=== PATIENT | female | born 1935 | race Caucasian/White ===

== ENCOUNTER 2018-11-16 14:24 | Inpatient (IN) ==
[2018-11-16 15:57] LABS: Baso # (Auto) 0.3 th/mm3 (0.0-0.2); Baso % (Auto) 3.2 % (0.0-2.0); Chloride 109 meq/L (98-107); Eos # (Auto) 0.1 th/mm3 (0.0-0.4); Eos % (Auto) 0.8 % (0.0-4.0); Hematocrit 33.2 % (35.0-46.0); Hemoglobin 10.8 gm/dL (11.6-15.3); Lymph # (Auto) 1.1 th/mm3 (1.0-4.8); Lymph % (Auto) 12.3 % (9.0-44.0); Mean Corpuscular HGB Conc 32.6 % (32.0-36.0); Mean Corpuscular Hemoglobin 27.6 pg (27.0-34.0); Mean Corpuscular Volume 84.5 fL (80.0-100.0); Mean Platelet Volume 8.3 fL (7.0-11.0); Mono # (Auto) 0.8 th/mm3 (0.0-0.9); Mono % (Auto) 8.8 % (0.0-8.0); Neut # (Auto) 6.4 th/mm3 (1.8-7.7); Neut % (Auto) 74.9 % (16.0-70.0); Platelet Count 168 th/mm3 (150-450); Potassium 3.2 meq/L (3.5-5.1); Red Blood Count 3.93 mil/mm3 (4.00-5.30); Red Cell Distribution Width 14.4 % (11.6-17.2); Sodium 139 meq/L (136-145); White Blood Count 8.7 th/mm3 (4.0-11.0)
[2018-11-16 16:00] LABS: Albumin 2.9 g/dL (3.4-5.0); Anion Gap 7 meq/L (5-15); Calcium 7.7 mg/dL (8.5-10.1); Carbon Dioxide 23.2 meq/L (21.0-32.0); Glucose,Random 130 mg/dL (74-106)
[2018-11-16 16:01] LABS: Blood Urea Nitrogen 24 mg/dL (7-18)
[2018-11-16 16:04] LABS: Alanine Aminotransferase 25 U/L (10-53); Aspartate Aminotransferase 78 U/L (15-37); Glomerular Filtration Rate 48 mL/min (>89)
[2018-11-16 16:05] LABS: Total Protein 6.3 g/dL (6.4-8.2)
[2018-11-16 16:06] LABS: Alkaline Phosphatase 46 U/L (45-117)
[2018-11-16 16:08] LABS: Troponin I 0.03 ng/mL (0.02-0.05)
[2018-11-16 17:06] LABS: Ovalocytes 1+; Platelet Estimate Normal (Normal); Platelet Morphology Normal (Normal)
[2018-11-16 17:42] LABS: Clarity,Urine Cloudy (Clear); Color,Urine Yellow (Yellw/Straw); Glucose,Urine (UA) Negative (Negative); Leukocyte Esterase,Urine Small (Negative); Nitrite,Urine Positive (Negative); Specific Gravity,Urine Greater/Equal 1.030 (1.002-1.035); Urobilinogen,Urine 0.2 mg/dL (Less than 2)
[2018-11-16 17:44] LABS: Bilirubin,Urine Small (Negative)
[2018-11-16 17:45] LABS: RBC,Urine 0-3 /hpf (0-3)
[2018-11-16 17:47] LABS: Bacteria,Urine Many /hpf; Hyaline Casts,Urine 0-3 /lpf (0-3); Mucus,Urine Few /lpf (Occasional); Squamous Epithelial Cell,Urine 0-5 /hpf (0-5); WBC,Urine 21-50 /hpf (0-5)
--- NOTE | 2018-11-16 18:06 | ED ---
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 She was at the doctor's office today for a follow- up appointment and was noticed to be weak and lethargic so he called the ambulance and brought her here to the ER. Patient has baseline the fascia from the previous CVA and will the history is taken from the daughter who says that over the last few days patient has not been eating well, not getting out of bed , weak and lethargic. No fever or chills or night sweats. No chest pain or shortness of breath or any other complaints. Related Data Home Medications Medication Instructions Recorded Confirmed apixaban [Eliquis] 2.5 mg PO BID 11/14/18 11/16/18 aspirin 81 mg PO DAILY 11/14/18 11/16/18 carvedilol 3.125 mg PO DAILY 11/14/18 11/16/18 levetiracetam 500 mg PO BID 11/14/18 11/16/18 loratadine 10 mg PO DAILY 11/14/18 11/16/18 lorazepam 0.5 tab PO BID 11/14/18 11/16/18 losartan 50 mg PO DAILY 11/14/18 11/16/18 melatonin 1 mg PO HS PRN 11/14/18 11/16/18 nitroglycerin 1 patch TRANSDERMAL DAILY 11/14/18 11/16/18 pantoprazole 1 tab PO PRN 11/14/18 11/16/18 polyethylene glycol 3350 [Miralax] 1 scoop PO DAILY 11/14/18 11/16/18 pravastatin 40 mg PO HS 11/14/18 11/16/18 risperidone 1 - 2 tab PO DAILY 11/14/18 11/16/18 sertraline 1.5 tab PO DAILY 11/14/18 11/16/18 acyclovir 800 mg PO 5 TIMES A DAY 11/16/18 11/16/18 lorazepam 0.5 mg PO HS 11/16/18 11/16/18 Previous Rx's Medication Instructions Recorded gabapentin 100 mg PO BID #10 cap 11/14/18 ciprofloxacin HCl 500 mg PO Q12HR #6 tab 11/20/18 Allergies Allergy/AdvReac Type Severity Reaction Status Date / Time Sulfa (Sulfonamide Allergy Mild Hives Verified 11/07/18 11:22 Antibiotics) Review of Systems ROS: all other systems reviewed are negative [facility] Social History Social History Substance History: No History of Abuse Second Hand Smoke Exposure: No Smoking Status: Never smoker How Often Do You Have a Drink Containing Alcohol: Monthly or less Recent Travel in [facility] within the Last 8 Weeks: No Recent Out of Country Travel within the Last 8 Weeks: No Immunization History Tetanus Immunization: Unsure Exam Narrative Exam Narrative: GENERAL: Alert oriented x3 no acute distress. SKIN: Focused skin assessment warm/dry. HEAD: Atraumatic. Normocephalic. EYES: Pupils equal and round. No scleral icterus. No injection or drainage. ENT: No nasal bleeding or discharge. Mucous membranes pink and moist. NECK: Trachea midline. No JVD. CARDIOVASCULAR: Regular rate and rhythm. No murmur appreciated. RESPIRATORY: No accessory muscle use. Clear to auscultation. Breath sounds equal bilaterally. GASTROINTESTINAL: Abdomen soft, non-tender, nondistended. Hepatic and splenic margins not palpable. MUSCULOSKELETAL: No obvious deformities. No clubbing. No cyanosis. No edema. NEUROLOGICAL: Awake and alert. No obvious cranial nerve deficits. Motor grossly within normal limits. Normal speech. PSYCHIATRIC: Appropriate mood and affect; insight and judgment normal. Course Initial Documented Vital Signs Temperature 98.6 F 11/16/18 14:25 Pulse Rate 88 11/16/18 14:25 Respiratory Rate 18 11/16/18 14:25 Blood Pressure 136/60 11/16/18 14:25 Pulse Oximetry 99 11/16/18 14:25 Last Documented Vital Signs Temperature 98.0 F 11/20/18 20:00 Pulse Rate 70 11/20/18 20:00 Respiratory Rate 16 11/20/18 20:00 Blood Pressure 140/74 11/20/18 20:00 Pulse Oximetry 96 11/20/18 20:00 Medical Decision Making [facility] Narrative Medical decision making narrative: 83 female history of CVA hypertension here for altered mental status and generalized weakness. Patient vitals are stable without any hypotension or tachycardia, she received 1 L of IV fluids and became more alert but not back to her baseline. Patient continues to be altered mental status, her urine analysis is positive for UTI and this could explain her symptoms. Patient was started on Rocephin IV. Patient will benefit from admission. I spoke with Dr. Epperson accepted the patient. Medical Screen Exam Complete: Yes Emergency Medical Condition: Yes Lab Data Result diagrams: 11/17/18 05:00 11/17/18 05:00 Lab Results 11/16/18 11/16/18 11/16/18 Range/Units 15:35 15:35 15:35 CBC w Diff Slide review pending WBC 8.7 (4.0-11.0) th/mm3 RBC 3.93 L (4.00-5.30) mil/mm3 Hgb 10.8 L (11.6-15.3) gm/dL Hct 33.2 L (35.0-46.0) % MCV 84.5 (80.0-100.0) fL MCH 27.6 (27.0-34.0) pg MCHC 32.6 (32.0-36.0) % RDW 14.4 (11.6-17.2) % Plt Count 168 (150-450) th/mm3 MPV 8.3 (7.0-11.0) fL Neut % (Auto) 74.9 H (16.0-70.0) % Lymph % (Auto) 12.3 (9.0-44.0) % [place] % (Auto) 8.8 H (0.0-8.0) % Eos % (Auto) 0.8 (0.0-4.0) % Baso % (Auto) 3.2 H (0.0-2.0) % Neut # (Auto) 6.4 (1.8-7.7) th/mm3 Lymph # (Auto) 1.1 (1.0-4.8) th/mm3 [place] # (Auto) 0.8 (0.0-0.9) th/mm3 Eos # (Auto) 0.1 (0.0-0.4) th/mm3 Baso # (Auto) 0.3 H (0.0-0.2) th/mm3 WBC Differential . Diff Scan Auto diff confirmed Differential Comment . Platelet Estimate Normal (Normal) Platelet Morphology Normal (Normal) Ovalocytes 1+ H (None) PT (9.8-11.6) sec INR Ratio APTT (23.4-31.7) sec Sodium 139 (136-145) meq/L Potassium 3.2 L (3.5-5.1) meq/L Chloride 109 H (98-107) meq/L Carbon Dioxide 23.2 (21.0-32.0) meq/L Anion Gap 7 (5-15) meq/L BUN 24 H (7-18) mg/dL Creatinine 1.10 H (0.50-1.00) mg/dL Estimated GFR 48 L (>89) mL/min Random Glucose 130 H (74-106) mg/dL Calcium 7.7 L (8.5-10.1) mg/dL Total Bilirubin 1.0 (0.2-1.0) mg/dL AST 78 H (15-37) U/L ALT 25 (10-53) U/L Alkaline Phosphatase 46 (45-117) U/L Ammonia 23 (11-32) mcmol/L Troponin I 0.03 (0.02-0.05) ng/mL Total Protein 6.3 L D (6.4-8.2) g/dL Albumin 2.9 L (3.4-5.0) g/dL Triglycerides (42-150) mg/dL Cholesterol (120-200) mg/dL LDL Cholesterol, Calc (0-99) mg/dL HDL Cholesterol (40.0-60.0) mg/dL Cholesterol/HDL Ratio Ratio TSH (0.358-3.740) uIU/mL Free T4 (0.76-1.46) ng/dL Urine Color (Yellw/Straw) Urine Clarity (Clear) Urine pH (5.0-8.5) Ur Specific [place] (1.002-1.035) Urine Protein (Neg-Trace) mg/dL Urine Glucose (UA) (Negative) mg/dL Urine Ketones (Negative) mg/dL Urine Occult Blood (Negative) Urine Nitrate (Negative) Urine Bilirubin (Negative) Urine Urobilinogen (Less than 2) mg/dL Ur Leukocyte Esterase (Negative) Urine RBC (0-3) /hpf Urine WBC (0-5) /hpf Urine WBC Clumps (None) Ur Squamous Epith Cells (0-5) /hpf Urine Bacteria (None) /hpf Hyaline Casts (0-3) /lpf Urine Mucus (Occasional) /lpf Micro UA Comment Ur Microscopic Review Urine Culture Comments CSF Volume (1) mL CSF Supernat Color (1) (Clear) CSF Gross Blood (1) (0) CSF Volume (2) mL CSF Supernat Color (2) (Clear) CSF Gross Blood (2) (0) CSF Volume (3) mL CSF Supernat Color (3) (Clear) CSF Gross Blood (3) (0) CSF Volume (4) mL CSF Supernat Color (4) (Clear) CSF Gross Blood (4) (0) CSF WBC (4) (0-10) /mm3 CSF RBC (4) (None) /mm3 CSF Neutrophils % % CSF Lymphocytes % % CSF Monocytes % % CSF Glucose (40-80) mg/dL CSF Total Protein (15.0-45.0) mg/dL CSF EBV DNA (PCR) (Negative) CSF Herpes I DNA (PCR) (Negative) CSF Herpes II DNA (PCR) (Negative) Levetiracetam (12.0 - 46.0) mcg/mL EBV Source 11/16/18 11/16/18 11/16/18 Range/Units 15:35 15:35 17:35 CBC w Diff WBC (4.0-11.0) th/mm3 RBC (4.00-5.30) mil/mm3 Hgb (11.6-15.3) gm/dL Hct (35.0-46.0) % MCV (80.0-100.0) fL MCH (27.0-34.0) pg MCHC (32.0-36.0) % RDW (11.6-17.2) % Plt Count (150-450) th/mm3 MPV (7.0-11.0) fL Neut % (Auto) (16.0-70.0) % Lymph % (Auto) (9.0-44.0) % [place] % (Auto) (0.0-8.0) % Eos % (Auto) (0.0-4.0) % Baso % (Auto) (0.0-2.0) % Neut # (Auto) (1.8-7.7) th/mm3 Lymph # (Auto) (1.0-4.8) th/mm3 [place] # (Auto) (0.0-0.9) th/mm3 Eos # (Auto) (0.0-0.4) th/mm3 Baso # (Auto) (0.0-0.2) th/mm3 WBC Differential Diff Scan Differential Comment Platelet Estimate (Normal) Platelet Morphology (Normal) Ovalocytes (None) PT (9.8-11.6) sec INR Ratio APTT (23.4-31.7) sec Sodium (136-145) meq/L Potassium (3.5-5.1) meq/L Chloride (98-107) meq/L Carbon Dioxide (21.0-32.0) meq/L Anion Gap (5-15) meq/L BUN (7-18) mg/dL Creatinine (0.50-1.00) mg/dL Estimated GFR (>89) mL/min Random Glucose (74-106) mg/dL Calcium (8.5-10.1) mg/dL Total Bilirubin (0.2-1.0) mg/dL AST (15-37) U/L ALT (10-53) U/L Alkaline Phosphatase (45-117) U/L Ammonia (11-32) mcmol/L Troponin I (0.02-0.05) ng/mL Total Protein (6.4-8.2) g/dL Albumin (3.4-5.0) g/dL Triglycerides 90 (42-150) mg/dL Cholesterol 117 L (120-200) mg/dL LDL Cholesterol, Calc 61 (0-99) mg/dL HDL Cholesterol 38.5 L (40.0-60.0) mg/dL Cholesterol/HDL Ratio 3.03 Ratio TSH 2.250 (0.358-3.740) uIU/mL Free T4 (0.76-1.46) ng/dL Urine Color Yellow (Yellw/Straw) Urine Clarity Cloudy H (Clear) Urine pH 6.0 (5.0-8.5) Ur Specific [place] Greater/equal 1.030 (1.002-1.035) Urine Protein 100 H (Neg-Trace) mg/dL Urine Glucose (UA) Negative (Negative) mg/dL Urine Ketones Trace H (Negative) mg/dL Urine Occult Blood Moderate H (Negative) Urine Nitrate Positive H (Negative) Urine Bilirubin Small H (Negative) Urine Urobilinogen 0.2 (Less than 2) mg/dL Ur Leukocyte Esterase Small H (Negative) Urine RBC 0-3 (0-3) /hpf Urine WBC 21-50 H (0-5) /hpf Urine WBC Clumps Few H (None) Ur Squamous Epith Cells 0-5 (0-5) /hpf Urine Bacteria Many H (None) /hpf Hyaline Casts 0-3 (0-3) /lpf Urine Mucus Few H (Occasional) /lpf Micro UA Comment Cath-culture ind Ur Microscopic Review Microscopic reviewed Urine Culture Comments Cath-cult indicated CSF Volume (1) mL CSF Supernat Color (1) (Clear) CSF Gross Blood (1) (0) CSF Volume (2) mL CSF Supernat Color (2) (Clear) CSF Gross Blood (2) (0) CSF Volume (3) mL CSF Supernat Color (3) (Clear) CSF Gross Blood (3) (0) CSF Volume (4) mL CSF Supernat Color (4) (Clear) CSF Gross Blood (4) (0) CSF WBC (4) (0-10) /mm3 CSF RBC (4) (None) /mm3 CSF Neutrophils % % CSF Lymphocytes % % CSF Monocytes % % CSF Glucose (40-80) mg/dL CSF Total Protein (15.0-45.0) mg/dL CSF EBV DNA (PCR) (Negative) CSF Herpes I DNA (PCR) (Negative) CSF Herpes II DNA (PCR) (Negative) Levetiracetam (12.0 - 46.0) mcg/mL EBV Source 11/16/18 11/16/18 11/17/18 Range/Units 19:50 19:50 05:00 CBC w Diff Slide review pending WBC 9.2 (4.0-11.0) th/mm3 RBC 3.88 L (4.00-5.30) mil/mm3 Hgb 10.7 L (11.6-15.3) gm/dL Hct 33.4 L (35.0-46.0) % MCV 86.1 (80.0-100.0) fL MCH 27.6 (27.0-34.0) pg MCHC 32.0 (32.0-36.0) % RDW 14.6 (11.6-17.2) % Plt Count 155 (150-450) th/mm3 MPV 9.1 (7.0-11.0) fL Neut % (Auto) 75.9 H (16.0-70.0) % Lymph % (Auto) 12.0 (9.0-44.0) % [place] % (Auto) 9.4 H (0.0-8.0) % Eos % (Auto) 1.6 (0.0-4.0) % Baso % (Auto) 1.1 (0.0-2.0) % Neut # (Auto) 7.0 (1.8-7.7) th/mm3 Lymph # (Auto) 1.1 (1.0-4.8) th/mm3 [place] # (Auto) 0.9 (0.0-0.9) th/mm3 Eos # (Auto) 0.1 (0.0-0.4) th/mm3 Baso # (Auto) 0.1 (0.0-0.2) th/mm3 WBC Differential . Diff Scan Auto diff confirmed Differential Comment . Platelet Estimate (Normal) Platelet Morphology (Normal) Ovalocytes (None) PT (9.8-11.6) sec INR Ratio APTT (23.4-31.7) sec Sodium (136-145) meq/L Potassium (3.5-5.1) meq/L Chloride (98-107) meq/L Carbon Dioxide (21.0-32.0) meq/L Anion Gap (5-15) meq/L BUN (7-18) mg/dL Creatinine (0.50-1.00) mg/dL Estimated GFR (>89) mL/min Random Glucose (74-106) mg/dL Calcium (8.5-10.1) mg/dL Total Bilirubin (0.2-1.0) mg/dL AST (15-37) U/L ALT (10-53) U/L Alkaline Phosphatase (45-117) U/L Ammonia (11-32) mcmol/L Troponin I (0.02-0.05) ng/mL Total Protein (6.4-8.2) g/dL Albumin (3.4-5.0) g/dL Triglycerides (42-150) mg/dL Cholesterol (120-200) mg/dL LDL Cholesterol, Calc (0-99) mg/dL HDL Cholesterol (40.0-60.0) mg/dL Cholesterol/HDL Ratio Ratio TSH (0.358-3.740) uIU/mL Free T4 1.00 (0.76-1.46) ng/dL Urine Color (Yellw/Straw) Urine Clarity (Clear) Urine pH (5.0-8.5) Ur Specific [place] (1.002-1.035) Urine Protein (Neg-Trace) mg/dL Urine Glucose (UA) (Negative) mg/dL Urine Ketones (Negative) mg/dL Urine Occult Blood (Negative) Urine Nitrate (Negative) Urine Bilirubin (Negative) Urine Urobilinogen (Less than 2) mg/dL Ur Leukocyte Esterase (Negative) Urine RBC (0-3) /hpf Urine WBC (0-5) /hpf Urine WBC Clumps (None) Ur Squamous Epith Cells (0-5) /hpf Urine Bacteria (None) /hpf Hyaline Casts (0-3) /lpf Urine Mucus (Occasional) /lpf Micro UA Comment Ur Microscopic Review Urine Culture Comments CSF Volume (1) mL CSF Supernat Color (1) (Clear) CSF Gross Blood (1) (0) CSF Volume (2) mL CSF Supernat Color (2) (Clear) CSF Gross Blood (2) (0) CSF Volume (3) mL CSF Supernat Color (3) (Clear) CSF Gross Blood (3) (0) CSF Volume (4) mL CSF Supernat Color (4) (Clear) CSF Gross Blood (4) (0) CSF WBC (4) (0-10) /mm3 CSF RBC (4) (None) /mm3 CSF Neutrophils % % CSF Lymphocytes % % CSF Monocytes % % CSF Glucose (40-80) mg/dL CSF Total Protein (15.0-45.0) mg/dL CSF EBV DNA (PCR) (Negative) CSF Herpes I DNA (PCR) (Negative) CSF Herpes II DNA (PCR) (Negative) Levetiracetam 17.1 (12.0 - 46.0) mcg/mL EBV Source 11/17/18 11/17/18 11/18/18 Range/Units 05:00 19:00 08:52 CBC w Diff WBC (4.0-11.0) th/mm3 RBC (4.00-5.30) mil/mm3 Hgb (11.6-15.3) gm/dL Hct (35.0-46.0) % MCV (80.0-100.0) fL MCH (27.0-34.0) pg MCHC (32.0-36.0) % RDW (11.6-17.2) % Plt Count (150-450) th/mm3 MPV (7.0-11.0) fL Neut % (Auto) (16.0-70.0) % Lymph % (Auto) (9.0-44.0) % [place] % (Auto) (0.0-8.0) % Eos % (Auto) (0.0-4.0) % Baso % (Auto) (0.0-2.0) % Neut # (Auto) (1.8-7.7) th/mm3 Lymph # (Auto) (1.0-4.8) th/mm3 [place] # (Auto) (0.0-0.9) th/mm3 Eos # (Auto) (0.0-0.4) th/mm3 Baso # (Auto) (0.0-0.2) th/mm3 WBC Differential Diff Scan Differential Comment Platelet Estimate (Normal) Platelet Morphology (Normal) Ovalocytes (None) PT 10.8 (9.8-11.6) sec INR 1.1 Ratio APTT 29.1 (23.4-31.7) sec Sodium 142 (136-145) meq/L Potassium 3.8 (3.5-5.1) meq/L Chloride 110 H (98-107) meq/L Carbon Dioxide 24.2 (21.0-32.0) meq/L Anion Gap 8 (5-15) meq/L BUN 22 H (7-18) mg/dL Creatinine 0.93 (0.50-1.00) mg/dL Estimated GFR 58 L (>89) mL/min Random Glucose 99 (74-106) mg/dL Calcium 7.9 L (8.5-10.1) mg/dL Total Bilirubin (0.2-1.0) mg/dL AST (15-37) U/L ALT (10-53) U/L Alkaline Phosphatase (45-117) U/L Ammonia (11-32) mcmol/L Troponin I (0.02-0.05) ng/mL Total Protein (6.4-8.2) g/dL Albumin (3.4-5.0) g/dL Triglycerides (42-150) mg/dL Cholesterol (120-200) mg/dL LDL Cholesterol, Calc (0-99) mg/dL HDL Cholesterol (40.0-60.0) mg/dL Cholesterol/HDL Ratio Ratio TSH (0.358-3.740) uIU/mL Free T4 (0.76-1.46) ng/dL Urine Color (Yellw/Straw) Urine Clarity (Clear) Urine pH (5.0-8.5) Ur Specific [place] (1.002-1.035) Urine Protein (Neg-Trace) mg/dL Urine Glucose (UA) (Negative) mg/dL Urine Ketones (Negative) mg/dL Urine Occult Blood (Negative) Urine Nitrate (Negative) Urine Bilirubin (Negative) Urine Urobilinogen (Less than 2) mg/dL Ur Leukocyte Esterase (Negative) Urine RBC (0-3) /hpf Urine WBC (0-5) /hpf Urine WBC Clumps (None) Ur Squamous Epith Cells (0-5) /hpf Urine Bacteria (None) /hpf Hyaline Casts (0-3) /lpf Urine Mucus (Occasional) /lpf Micro UA Comment Ur Microscopic Review Urine Culture Comments CSF Volume (1) 2.5 mL CSF Supernat Color (1) Clear (Clear) CSF Gross Blood (1) 0 (0) CSF Volume (2) 2.5 mL CSF Supernat Color (2) Clear (Clear) CSF Gross Blood (2) 0 (0) CSF Volume (3) 3.0 mL CSF Supernat Color (3) Clear (Clear) CSF Gross Blood (3) 0 (0) CSF Volume (4) 3.5 mL CSF Supernat Color (4) Clear (Clear) CSF Gross Blood (4) 0 (0) CSF WBC (4) 12 H (0-10) /mm3 CSF RBC (4) 1 H (None) /mm3 CSF Neutrophils % 2 % CSF Lymphocytes % 94 % CSF Monocytes % 4 % CSF Glucose (40-80) mg/dL CSF Total Protein (15.0-45.0) mg/dL CSF EBV DNA (PCR) (Negative) CSF Herpes I DNA (PCR) (Negative) CSF Herpes II DNA (PCR) (Negative) Levetiracetam (12.0 - 46.0) mcg/mL EBV Source 11/18/18 11/18/18 Range/Units 08:52 08:52 CBC w Diff WBC (4.0-11.0) th/mm3 RBC (4.00-5.30) mil/mm3 Hgb (11.6-15.3) gm/dL Hct (35.0-46.0) % MCV (80.0-100.0) fL MCH (27.0-34.0) pg MCHC (32.0-36.0) % RDW (11.6-17.2) % Plt Count (150-450) th/mm3 MPV (7.0-11.0) fL Neut % (Auto) (16.0-70.0) % Lymph % (Auto) (9.0-44.0) % [place] % (Auto) (0.0-8.0) % Eos % (Auto) (0.0-4.0) % Baso % (Auto) (0.0-2.0) % Neut # (Auto) (1.8-7.7) th/mm3 Lymph # (Auto) (1.0-4.8) th/mm3 [place] # (Auto) (0.0-0.9) th/mm3 Eos # (Auto) (0.0-0.4) th/mm3 Baso # (Auto) (0.0-0.2) th/mm3 WBC Differential Diff Scan Differential Comment Platelet Estimate (Normal) Platelet Morphology (Normal) Ovalocytes (None) PT (9.8-11.6) sec INR Ratio APTT (23.4-31.7) sec Sodium (136-145) meq/L Potassium (3.5-5.1) meq/L Chloride (98-107) meq/L Carbon Dioxide (21.0-32.0) meq/L Anion Gap (5-15) meq/L BUN (7-18) mg/dL Creatinine (0.50-1.00) mg/dL Estimated GFR (>89) mL/min Random Glucose (74-106) mg/dL Calcium (8.5-10.1) mg/dL Total Bilirubin (0.2-1.0) mg/dL AST (15-37) U/L ALT (10-53) U/L Alkaline Phosphatase (45-117) U/L Ammonia (11-32) mcmol/L Troponin I (0.02-0.05) ng/mL Total Protein (6.4-8.2) g/dL Albumin (3.4-5.0) g/dL Triglycerides (42-150) mg/dL Cholesterol (120-200) mg/dL LDL Cholesterol, Calc (0-99) mg/dL HDL Cholesterol (40.0-60.0) mg/dL Cholesterol/HDL Ratio Ratio TSH (0.358-3.740) uIU/mL Free T4 (0.76-1.46) ng/dL Urine Color (Yellw/Straw) Urine Clarity (Clear) Urine pH (5.0-8.5) Ur Specific [place] (1.002-1.035) Urine Protein (Neg-Trace) mg/dL Urine Glucose (UA) (Negative) mg/dL Urine Ketones (Negative) mg/dL Urine Occult Blood (Negative) Urine Nitrate (Negative) Urine Bilirubin (Negative) Urine Urobilinogen (Less than 2) mg/dL Ur Leukocyte Esterase (Negative) Urine RBC (0-3) /hpf Urine WBC (0-5) /hpf Urine WBC Clumps (None) Ur Squamous Epith Cells (0-5) /hpf Urine Bacteria (None) /hpf Hyaline Casts (0-3) /lpf Urine Mucus (Occasional) /lpf Micro UA Comment Ur Microscopic Review Urine Culture Comments CSF Volume (1) mL CSF Supernat Color (1) (Clear) CSF Gross Blood (1) (0) CSF Volume (2) mL CSF Supernat Color (2) (Clear) CSF Gross Blood (2) (0) CSF Volume (3) mL CSF Supernat Color (3) (Clear) CSF Gross Blood (3) (0) CSF Volume (4) mL CSF Supernat Color (4) (Clear) CSF Gross Blood (4) (0) CSF WBC (4) (0-10) /mm3 CSF RBC (4) (None) /mm3 CSF Neutrophils % % CSF Lymphocytes % % CSF Monocytes % % CSF Glucose 50 (40-80) mg/dL CSF Total Protein 34.0 (15.0-45.0) mg/dL CSF EBV DNA (PCR) Negative (Negative) CSF Herpes I DNA (PCR) Negative (Negative) CSF Herpes II DNA (PCR) Negative (Negative) Levetiracetam (12.0 - 46.0) mcg/mL EBV Source [facility] Imaging Data Radiologist's impression: Head CT 11/16/18 00:00 CONCLUSION: 1. 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 Head MRI 11/17/18 00:00 CONCLUSION: 1. Old infarct left sylvian region, negative for acute process. Lumbar Puncture Fluoroscopy 11/18/18 00:00 CONCLUSION: Uncomplicated fluoroscopically guided lumbar puncture. Discharge Plan Discharge Disposition Patient Disposition: ED Admit(ED Internal Use Only) Discharge Condition Condition: Stable Discharge Order Discharge Orders: Discharge Order (Routine); Ordered 11/20/18 Ordered By: Pilar Rae ED Use Only Admit Order (Routine); Ordered 11/16/18 Ordered By: Kosta Bartlett Discharge Details Anticipated Discharge Date: 11/20/18 Discharge Comment: DC when arrangements are done Physicians Team ED Provider: Kosta Bartlett Primary Care Provider: Glenn Marie Attending Provider: Pilar Rae Other Providers: Colt Kulkarni ED Status: Left Department Discharge Information Discharge Date/Time: 11/16/18 21:01
[2018-11-16] MEDS: Sod Chloride 0.9% Inj 1,000 ML IV.CONT SCH ×2 (18:30→23:49)
--- NOTE | 2018-11-16 18:59 | CT ---
EXAM DATE: 11/16/2018 6:56 PM EST AGE/SEX: 83 years / Female INDICATIONS: Altered mental status. CLINICAL DATA: This is the patient's initial encounter. Patient reports that signs and symptoms have been present for 1 day and indicates a pain score of Nonresponsive. MEDICAL/SURGICAL HISTORY: Stroke. Hypertension. None. RADIATION DOSE: 49.68 CTDI (mGy) [place] [facility] [place]. . TECHNIQUE: CT of the head without contrast. Using automated exposure control and adjustment of the mA and/or kV according to patient size, radiation dose was kept as low as reasonably achievable to ob tain optimal diagnostic quality images. DICOM format image data is available electronically for revi ew and comparison. FINDINGS: Cerebrum: There is an old infarct in the left sylvian region. There is moderate central and cortical atrophy. The right hemisphere is unremarkable Posterior fossa appears normal Orbits and paranasal sinuses are unremarkable. CONCLUSION: 1. 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 Electronically signed by: Jorge A Appiah MD Board Certified Radiologist 11/16/2018 6:58 PM EST
[2018-11-16] MEDS ORDERED: Acetaminophen 325 MG Tablet PO PRN (19:00)
[2018-11-16] MEDS ORDERED: Bisacodyl 10 MG Supp RECTAL PRN (19:00)
--- NOTE | 2018-11-16 21:37 | ECG ---
Date Performed: 11/16/2018 Time Performed: 19:52:03 PTAGE: 83 years EKG: ATRIAL FIBRILLATION SEPTAL MYOCARDIAL INFARCTION ABNORMAL ECG PREVIOUS TRACING : 11/14/2018 06.28 Compared to previous tracing, Sinus rhythm no longer present DOCTOR: Abel Adams Interpretating Date/Time 11/16/2018 21:36:05
[2018-11-16 22:01] LABS: Chol/HDL Ratio 3.03 Ratio; HDL Cholesterol 38.5 mg/dL (40.0-60.0)
[2018-11-16] MEDS: Potassium Chlor 20 mEq Premix 20 MEQ/100 ML PIGGYBACK IV.SIG SCH (23:33)
[2018-11-16] MEDS: levETIRAcetam 500 MG Tablet PO SCH (23:48)
[2018-11-16] MEDS: Acyclovir 800 MG Tablet PO SCH (23:49)
[2018-11-17] MEDS: Potassium Chlor 20 mEq Premix 20 MEQ/100 ML PIGGYBACK IV.SIG SCH (02:09)
[2018-11-17] MEDS: Acyclovir 800 MG Tablet PO SCH (05:14)
[2018-11-17 06:31] LABS: Baso # (Auto) 0.1 th/mm3 (0.0-0.2); Baso % (Auto) 1.1 % (0.0-2.0); Eos # (Auto) 0.1 th/mm3 (0.0-0.4); Eos % (Auto) 1.6 % (0.0-4.0); Hematocrit 33.4 % (35.0-46.0); Hemoglobin 10.7 gm/dL (11.6-15.3); Lymph # (Auto) 1.1 th/mm3 (1.0-4.8); Mean Corpuscular Hemoglobin 27.6 pg (27.0-34.0); Mean Corpuscular Volume 86.1 fL (80.0-100.0); Mean Platelet Volume 9.1 fL (7.0-11.0); Mono # (Auto) 0.9 th/mm3 (0.0-0.9); Mono % (Auto) 9.4 % (0.0-8.0); Neut % (Auto) 75.9 % (16.0-70.0); Platelet Count 155 th/mm3 (150-450); Red Blood Count 3.88 mil/mm3 (4.00-5.30); Red Cell Distribution Width 14.6 % (11.6-17.2); White Blood Count 9.2 th/mm3 (4.0-11.0)
[2018-11-17 06:40] LABS: Potassium 3.8 meq/L (3.5-5.1)
[2018-11-17 06:44] LABS: Calcium 7.9 mg/dL (8.5-10.1)
[2018-11-17 06:45] LABS: Carbon Dioxide 24.2 meq/L (21.0-32.0)
--- NOTE | 2018-11-17 08:14 | P.HPIM ---
History of Present Illness Service: Hospitalist Primary Care Physician: Glenn Marie DO Chief Complaint: Lethargic, AMS History of Present Illness: Ms. Montanez is an 83-year-old female with a history of atrial fibrillation, hypertension, previous stroke who presented to the emergency department on 11/16/2018 due to worsening lethargy, altered mental status. At her baseline, patient is able to walk around but cannot verbalize. She comprehends very well. At the time of this interview, patient is not able to participate in any meaningful way. Patient's is at bedside. About a week ago, his skin lesion on the right flank area was noted. She was subsequently evaluated in the emergency department and was given desciclovir. She went to her primary care physician's office where she was found to have an lethargy. Primary care physician called ambulance and subsequently patient was brought to the hospital. ED workup indicates possible UTI. CT head showed old stroke but no acute findings. Patient was given 1 dose of ceftriaxone in the emergency department. 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 Family history: No family history of Alzheimer's or Parkinson's. Review of Systems Review of Systems: all other systems reviewed are negative [facility] Social History Social History Substance History: No History of Abuse Second Hand Smoke Exposure: No Smoking Status: Never smoker How Often Do You Have a Drink Containing Alcohol: Monthly or less Recent Travel in [facility] within the Last 8 Weeks: No Recent Out of Country Travel within the Last 8 Weeks: No Immunization History Tetanus Immunization: <5 Years Hx Influenza Vaccine This Season: No Medications and Allergies Allergies Allergy/AdvReac Type Severity Reaction Status Date / Time Sulfa (Sulfonamide Allergy Mild Hives Verified 11/07/18 11:22 Antibiotics) Home Medications Medication Instructions Recorded Confirmed Type apixaban [Eliquis] 2.5 mg PO BID 11/14/18 11/16/18 History aspirin 81 mg PO DAILY 11/14/18 11/16/18 History carvedilol 3.125 mg PO DAILY 11/14/18 11/16/18 History levetiracetam 500 mg PO BID 11/14/18 11/16/18 History loratadine 10 mg PO DAILY 11/14/18 11/16/18 History lorazepam 0.5 tab PO BID 11/14/18 11/16/18 History losartan 50 mg PO DAILY 11/14/18 11/16/18 History melatonin 1 mg PO HS PRN 11/14/18 11/16/18 History nitroglycerin 1 patch TRANSDERMAL DAILY 11/14/18 11/16/18 History pantoprazole 1 tab PO PRN 11/14/18 11/16/18 History polyethylene glycol 3350 [Miralax] 1 scoop PO DAILY 11/14/18 11/16/18 History pravastatin 40 mg PO HS 11/14/18 11/16/18 History risperidone 1 - 2 tab PO DAILY 11/14/18 11/16/18 History sertraline 1.5 tab PO DAILY 11/14/18 11/16/18 History acyclovir 800 mg PO 5 TIMES A DAY 11/16/18 11/16/18 History lorazepam 0.5 mg PO HS 11/16/18 11/16/18 History Active Medications: Active Medications Acetaminophen (Tylenol) 650 mg PO Q4H PRN PRN Reason: Temp > 100.4 Al Hydroxide/Mg Hydroxide (Milk Of Magnesia Liq) 30 ml PO Q12H PRN PRN Reason: Mild Constipation Bisacodyl (Dulcolax Supp) 10 mg RECTAL DAILY PRN PRN Reason: SEVERE CONSITIPATION Carvedilol (Coreg) 3.125 mg PO DAILY [facility] Sodium Chloride (Ns Inj) 1,000 mls @ 42 mls/hr IV.CONT .[id number] [facility] Last Admin: 11/16/18 23:49 Dose: 42 mls/hr Ceftriaxone Sodium 1,000 mg/ (Sodium Chloride) 100 mls @ 200 mls/hr IV.SIG Q24H [facility] Lactulose (Lactulose Liq) 30 ml PO DAILY PRN PRN Reason: SEVERE CONSITIPATION Levetiracetam (Keppra) 500 mg PO BID [facility] Last Admin: 11/16/18 23:48 Dose: Not Given Ondansetron HCl (Zofran Inj) 4 mg IV.PUSH Q6H PRN PRN Reason: NAUSEA OR VOMITING Sennosides (Senokot) 17.2 mg PO Q12H PRN PRN Reason: Moderate Constipation Sodium Chloride (Ns Flush) 2 ml IV.FLUSH BID [facility] Last Admin: 11/16/18 23:47 Dose: 2 ml Sodium Chloride (Ns Flush) 2 ml IV.FLUSH PRN PRN PRN Reason: FLUSH AFTER USING IV ACCESS Valacyclovir HCl (Valtrex) 1,000 mg PO Q8HR [facility] Results Labs CBC & Chem 7: 11/17/18 05:00 11/17/18 05:[address] 11/16/18 00:00 CONCLUSION: 1. 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 Caprini VTE Risk Assessment Caprini VTE Risk Assessment: Moderate/High Risk (score >= 2) Caprini Risk Assessment Model: Point Value = 1 Point Value = 2 Point Value = 3 Point Value = 5 Age 41-60 Minor surgery BMI > 25 kg/m2 Swollen legs Varicose veins or History of unexplained or recurrent spontaneous Oral contraceptives or hormone replacement Sepsis (< 1 month) Serious lung disease, including pneumonia (< 1 month) Abnormal pulmonary function Acute myocardial infarction Congestive heart failure (< 1 month) History of inflammatory bowel disease Medical patient at bed rest Age 61-74 Arthroscopic surgery Major open surgery (> 45 min) Laparoscopic surgery (> 45 min) Malignancy Confined to bed (> 72 hours) Immobilizing plaster cast Central venous access Age >= 75 History of VTE Family history of VTE Factor V Leiden Prothrombin [id number] Lupus anticoagulant Anticardiolipin antibodies Elevated serum homocysteine Heparin-induced thrombocytopenia Other congenital or acquired thrombophilia Stroke (< 1 month) Elective arthroplasty Hip, pelvis, or leg fracture Acute spinal cord injury (< 1 month) Prophylaxis Regimen: Total Risk Factor Score Risk Level Prophylaxis Regimen 0-1 Low Early ambulation 2 Moderate Order ONE of the following: *Sequential Compression Device (SCD) *Heparin 5000 units SQ BID 3-4 Higher Order ONE of the following medications: *Heparin 5000 units SQ TID *Enoxaparin/Lovenox 40 mg SQ daily (WT < 150 kg, CrCl > 30 mL/min) *Enoxaparin/Lovenox 30 mg SQ daily (WT < 150 kg, CrCl > 10-29 mL/min) *Enoxaparin/Lovenox 30 mg SQ BID (WT < 150 kg, CrCl > 30 mL/min) AND/OR *Sequential Compression Device (SCD) 5 or more Highest Order ONE of the following medications: *Heparin 5000 units SQ TID (Preferred with Epidurals) *Enoxaparin/Lovenox 40 mg SQ daily (WT < 150 kg, CrCl > 30 mL/min) *Enoxaparin/Lovenox 30 mg SQ daily (WT < 150 kg, CrCl > 10-29 mL/min) *Enoxaparin/Lovenox 30 mg SQ BID (WT < 150 kg, CrCl > 30 mL/min) AND *Sequential Compression Device (SCD) Assessment and Plan Plan Ms. Montanez is an 83-year-old female with a history of atrial fibrillation, previous CVA, hypertension who presents to the emergency department on the advice of her primary care physician due to increased amount of lethargy as well as altered mental status. Patient was recently evaluated in the emergency department and was diagnosed with right flank area shingles. She has been on acyclovir p.o. Acute delirium History of left-sided CVA History of seizure around the time of stroke Possibly due to acute herpes zoster as well as urinary tract infection. CT scan did not show any acute findings. Will obtain MRI of the brain. Continue Keppra 500 mg p.o. twice daily. Normal saline 100 cc/h for 1-2 days. PT, OT, speech therapy consultation pending. Acute herpes zoster Discontinue acyclovir and start valacyclovir 1000 mg every 8 hours. Acetaminophen 500 mg every 6 hours as needed, morphine 2 mg every 4 hours as needed. Possible urinary tract infection Continue ceftriaxone 1 g every 24 hours Follow urine culture results. Atrial fibrillation Hypertension Currently normotensive. Continue carvedilol 3.125 mg p.o. daily, apixaban 2.5 mg p.o. twice daily No indication to continue aspirin as well. Will D/C aspirin. Full code. Apixaban. H&P: Quality VTE Deep Vein Thrombosis/Pulmonary Embolism Present on Admission: No
[2018-11-17] MEDS ORDERED: valACYclovir 500 MG Tab PO SCH (09:00)
[2018-11-17] MEDS: levETIRAcetam 500 MG Tablet PO SCH ×2 (10:12→20:17)
[2018-11-17] MEDS: Sod Chloride 0.9% Inj 1,000 ML IV.CONT SCH (10:17)
[2018-11-17] MEDS ORDERED: Gadobutrol PF 7.5 MMOL/7.5 ML Vial (for RAD) IV.SIG ONE (12:55)
--- NOTE | 2018-11-17 13:34 | MR ---
EXAM DATE: 11/17/2018 1:13 PM EST AGE/SEX: 83 years / Female INDICATIONS: Altered mental status. CLINICAL DATA: This is the patient's subsequent encounter. Patient reports that signs and symptoms h ave been present for 2 days and indicates a pain score of 0/10. MEDICAL/SURGICAL HISTORY: Cerebrovascular disease. Hypertension. Appendectomy. Hysterectomy. COMPARISON: No prior exams available for comparison. TECHNIQUE: Multiplanar, multisequence examination of the brain was performed without and with 5.5 ml Gadavist (gadobutrol) contrast as a single exam dose. FINDINGS: There is an old infarct in the left mid sylvian region .. There is no restricted diffusion to suggest a new infarction. There is no parenchymal hemorrhage. Mild hemosiderosis is present in the nivia-infa rct tissue. There are no extra-axial fluid collections appreciated. There is moderate central and cortical atrophy with significant periventricular white matter changes extending into the posterior fossa. In the posterior fossa the fourth ventricle is midline. The orbits and perineal sinuses visualized are unremarkable. CONCLUSION: 1. Old infarct left sylvian region, negative for acute process. Electronically signed by: Jorge A Appiah MD Board Certified Radiologist 11/17/2018 1:32 PM EST
[2018-11-17] MEDS: ACYCLOVIR IV.SIG SCH ×2 (13:47→20:16)
[2018-11-17] MEDS: SODIUM CHLOR 0.9% IV.SIG SCH ×2 (13:47→20:16)
[2018-11-17] MEDS: Acetaminophen 500 MG Tablet PO PRN ×2 (15:42→20:18)
[2018-11-17 19:41] LABS: Activated Partial Thrombo Time 29.1 sec (23.4-31.7); INR 1.1 Ratio; Prothrombin Time 10.8 sec (9.8-11.6)
[2018-11-17] MEDS: Morphine Inj 4 MG/ML Vial IV.PUSH PRN (22:26)
--- NOTE | 2018-11-17 23:28 | MB ---
cc: Colt Kulkarni MD, PhD DATE: 11/17/2018 REASON FOR CONSULTATION: Mental status change. HISTORY OF PRESENT ILLNESS: Ms. Montanez is an 83-year-old woman who 3 years ago had a left hemisphere stroke with aphasia and right-sided weakness, for the past several days has had more lethargy, generalized weakness, has had decreased p.o. intake. No seizure-like activity. PAST MEDICAL HISTORY: Atrial fibrillation, hypertension, previous stroke, hysterectomy. CURRENT MEDICATIONS: The patient is currently on: 1. Acyclovir 50 mg IV every 8 hours. 2. Dulcolax. 3. Coreg. 4. Lactulose. 5. Keppra 500 b.i.d. 6. Morphine p.r.n. 7. Zofran p.r.n. PHYSICAL EXAMINATION: VITAL SIGNS: Blood pressure is 99/68, pulse 79, respirations are 18, temperature 100.2 degrees. NEUROLOGIC: Higher cortical functions are very lethargic. She is aphasic. Cranial nerves show a right facial droop. Motor exam: She is weak in the right arm and right leg, 3/5 compared with 5/5 left. DIAGNOSTIC DATA: Brain MRI scan: Old infarct in the left. No acute stroke present. CT of the brain shows old left hemisphere stroke. No hemorrhage. LABORATORY DATA: White count is 9200, hemoglobin 10.7, hematocrit 33%, platelet count is 155,000. PT 10.8, INR 1.1, aPTT 29.1. Sodium is 139, potassium 3.2, chloride 109, CO2 of 23, BUN is 24, creatinine 1.1, GFR 48, glucose is 130. AST 78, ALT is 25, ammonia is 23, LDL is 68, HDL 38.5. IMPRESSION: History of left hemisphere stroke, now with mental status change. No evidence of acute stroke on MRI. This could be a metabolic encephalopathy. PLAN: Would recommend lumbar puncture to rule out infectious etiology, rule out encephalitis. I agree with acyclovir until the LP result is obtained. Colt Kulkarni MD, PhD QUENTIN/malena , 11:15 PM , 11:20 PM
[2018-11-18] MEDS: SODIUM CHLOR 0.9% IV.SIG SCH ×3 (04:18→21:25)
[2018-11-18] MEDS: ACYCLOVIR IV.SIG SCH ×3 (04:18→21:25)
[2018-11-18] MEDS: Sod Chloride 0.9% Inj 1,000 ML IV.CONT SCH ×2 (07:13→15:59)
--- NOTE | 2018-11-18 08:07 | P.PNIM ---
Subjective Interval history: Follow-up for viral encephalitis, UTI. Patient is currently resting in bed. More alert today. Afebrile. Physical Exam Vital signs: Vital Signs 11/17/18 12:00 11/17/18 16:00 11/17/18 20:00 Temperature 100.9 F H 100.2 F H 99.5 F Pulse Rate 83 87 79 Respiratory Rate 18 18 18 Blood Pressure 114/69 139/56 L 99/68 L Pulse Oximetry 94 L 94 L 97 11/18/18 00:00 11/18/18 00:22 11/18/18 00:56 Temperature 97.3 F L Pulse Rate 83 Respiratory Rate 18 20 20 Blood Pressure 91/64 L Pulse Oximetry 98 Intake & Output 11/17/18 11/18/18 11/18/18 18:59 06:59 18:59 Intake Total 1100 / 1100 371 / 371 Balance 1100 / 1100 371 / 371 Weight 58.5 kg Intake: IV 1100 / 1100 311 / 311 NS Inj 1,000 ML @ 100 mls/hr IV 1000 / 1000 .CONT .Q10H [facility] Rx#:[id number] Zovirax Inj 550 MG In NS Inj 311 / 311 150 ML @ 161 mls/hr IV.SIG Q8H [facility] Rx#:[id number] Rocephin Inj 1,000 MG In NS Inj 100 / 100 100 ML @ 200 mls/hr IV.SIG Q24H [facility] Rx#:[id number] Oral 60 / 60 Other: # Voids 1 # Urine Diapers 1 Date of Last Bowel Movement 11/17/18 11/17/18 # Bowel Movements 1 Narrative: GENERAL: More Alert, follows commands. Answers yes to some questions. SKIN: Warm and dry. HEAD: Normocephalic. EYES: No scleral icterus. No injection or drainage. NECK: Supple, trachea midline. No JVD or lymphadenopathy. CARDIOVASCULAR: Irreg Irreg without murmurs, gallops, or rubs. RESPIRATORY: Breath sounds equal bilaterally. No accessory muscle use. GASTROINTESTINAL: Abdomen soft, non-tender, nondistended. MUSCULOSKELETAL: No cyanosis, or edema. BACK: Nontender without obvious deformity. No CVA tenderness. Results Labs CBC & Chem 7: 11/17/18 05:00 11/17/18 05:00 Labs: Microbiology 11/16/18 17:35 Catheterized Urine Urine Culture - Preliminary gram negative rods Imaging Imaging: Impressions Head MRI 11/17/18 00:00 CONCLUSION: 1. Old infarct left sylvian region, negative for acute process. Assessment and Plan Plan Ms. Montanez is an 83-year-old female with a history of atrial fibrillation, previous CVA, hypertension who presents to the emergency department on the advice of her primary care physician due to increased amount of lethargy as well as altered mental status. Patient was recently evaluated in the emergency department and was diagnosed with right flank area shingles. She has been on acyclovir p.o. Probable viral encephalitis History of left-sided CVA History of seizure around the time of stroke Possibly due to acute herpes zoster CT scan did not show any acute findings. MRI unremarkabale for any acute findings. Continue Keppra 500 mg p.o. twice daily. Normal saline 100 cc/h for 1-2 days. PT, OT, speech therapy following -Neurology evaluation appreciated. Acute herpes zoster Continue IV Acyclovir for now until encephalitis is ruled out. If HSV PCR negative, we could consider switching to PO Valacyclovir. Acetaminophen 500 mg every 6 hours as needed, morphine 2 mg every 4 hours as needed. urinary tract infection Continue ceftriaxone 1 g every 24 hours Urine cx growing GNR. Will wait for identification. Atrial fibrillation Hypertension Currently normotensive. Continue carvedilol 3.125 mg p.o. daily, apixaban 2.5 mg p.o. twice daily (on hold) No indication to continue aspirin. Aspirin discontinued. Full code. We can likely start apixaban in a day or so. Patient [facility] study on 11/18/2018. Progress Note: Quality VTE Deep Vein Thrombosis/Pulmonary Embolism Present on Admission: No
[2018-11-18] MEDS: levETIRAcetam 500 MG Tablet PO SCH ×2 (08:27→21:25)
--- NOTE | 2018-11-18 09:27 | IR ---
EXAM DATE: 11/18/2018 9:17 AM EST AGE/SEX: 83 years / Female INDICATIONS: Patient with altered mental status in need of lumbar puncture. CLINICAL DATA: This is the patient's initial encounter. Patient reports that signs and symptoms have been present for 2 days and indicates a pain score of Nonresponsive. MEDICAL/SURGICAL HISTORY: Hypertension. Stroke. Hypercholesterolemia. A-Fib, Seizure Hyster ectomy. COMPARISON: No prior exams available for comparison. FLUORO TIME (min): 1.1 IMAGE SERIES: 1 RADIATION DOSE: 125mGy CAK ACCESS SITE: L2-3 LUMBAR PUNCTURE TIME: 0852 hours FLUID: Total volume of 13 cc of clear fluid was removed. Fluid was sent to lab for ordered studies. ; . . PROCEDURE: 1. Fluoroscopic guided lumbar puncture. The risks, benefits and alternatives to the procedure were explained and verbal and written consent w as obtained. The site was prepped in sterile fashion. Full sterile technique was used, including ca p, mask, sterile gloves and gown and a large sterile sheet. Hand hygiene and 2% chlorhexidine and/or betadine/alcohol prep was utilized per protocol for cutaneous antisepsis. The skin and subcutaneous tissues were infiltrated with local anesthetic solution. With fluoroscopic guidance the lumbar thecal sac was punctured at the level above. The fluid describ ed above was removed without difficulty. The patient tolerated the procedure well and there were no complications. CONCLUSION: Uncomplicated fluoroscopically guided lumbar puncture. Electronically signed by: Gaston Bah MD Board Certified Radiologist 11/18/2018 9:26 AM EST
[2018-11-18 09:44] LABS: RBC on Tube 4 1 /mm3
[2018-11-18 10:11] LABS: Lymphocytes, CSF 94 %; Monocytes,CSF 4 %; Neutrophils,CSF 2 %
[2018-11-18] MEDS: Morphine Inj 4 MG/ML Vial IV.PUSH PRN ×3 (11:49→21:25)
[2018-11-18] MEDS: Acetaminophen 500 MG Tablet PO PRN (11:49)
[2018-11-19] MEDS: SODIUM CHLOR 0.9% IV.SIG SCH ×3 (04:27→21:29)
[2018-11-19] MEDS: ACYCLOVIR IV.SIG SCH ×3 (04:27→21:29)
--- NOTE | 2018-11-19 08:55 | P.PNIM ---
Subjective Interval history: Follow-up for viral encephalitis, UTI, afib. Patient is resting in bed, alert, follows commands. No fever, chills. Yesterday she had low grade fever. Physical Exam Vital signs: Vital Signs 11/18/18 12:00 11/18/18 12:20 11/18/18 20:00 Temperature 100.3 F H 97.5 F L Pulse Rate 107 H 98 H 98 H Respiratory Rate 16 20 Blood Pressure 141/88 H 150/88 H Pulse Oximetry 95 96 11/19/18 00:00 11/19/18 04:00 11/19/18 04:02 Temperature 97.8 F Pulse Rate 98 H 103 H Respiratory Rate Blood Pressure Pulse Oximetry Intake & Output 11/18/18 11/19/18 11/19/18 18:59 06:59 18:59 Intake Total 1422 / 1422 1322 / 1322 Output Total 200 / 200 75 / 75 Balance 1222 / 1222 1247 / 1247 Weight 58.3 kg Intake: IV 1422 / 1422 1322 / 1322 NS Inj 1,000 ML @ 100 mls/hr IV 1000 / 1000 1000 / 1000 .CONT .Q10H [facility] Rx#:[id number] Zovirax Inj 550 MG In NS Inj 322 / 322 322 / 322 150 ML @ 161 mls/hr IV.SIG Q8H [facility] Rx#:[id number] Rocephin Inj 1,000 MG In NS Inj 100 / 100 100 ML @ 200 mls/hr IV.SIG Q24H [facility] Rx#:[id number] Oral 0 / 0 0 / 0 Output: Urine 200 / 200 75 / 75 Other: Date of Last Bowel Movement 11/17/18 Narrative: GENERAL: More Alert, follows commands. SKIN: Warm and dry. HEAD: Normocephalic. EYES: No scleral icterus. No injection or drainage. NECK: Supple, trachea midline. No JVD or lymphadenopathy. CARDIOVASCULAR: Irreg Irreg without murmurs, gallops, or rubs. RESPIRATORY: Breath sounds equal bilaterally. No accessory muscle use. GASTROINTESTINAL: Abdomen soft, non-tender, nondistended. MUSCULOSKELETAL: No cyanosis, or edema. BACK: Nontender without obvious deformity. No CVA tenderness. Results Labs CBC & Chem 7: 11/17/18 05:00 11/17/18 05:00 Labs: Microbiology 11/18/18 08:52 Lumbar Puncture Gram Stain - Final 11/18/18 08:52 Lumbar Puncture CSF Culture - Preliminary No growth in 24 hours 11/16/18 17:35 Catheterized Urine Urine Culture - Preliminary gram negative rods Imaging Imaging: Impressions Lumbar Puncture Fluoroscopy 11/18/18 00:00 CONCLUSION: Uncomplicated fluoroscopically guided lumbar puncture. Assessment and Plan Plan Ms. Montanez is an 83-year-old female with a history of atrial fibrillation, previous CVA, hypertension who presents to the emergency department on the advice of her primary care physician due to increased amount of lethargy as well as altered mental status. Patient was recently evaluated in the emergency department and was diagnosed with right flank area shingles. She has been on acyclovir p.o. Probable viral encephalitis History of left-sided CVA History of seizure around the time of stroke Possibly due to acute herpes zoster CT scan did not show any acute findings. MRI unremarkable for any acute findings. Continue Keppra 500 mg p.o. twice daily. -Currently on regular soft diet. PT, OT, speech therapy following -Neurology evaluation appreciated. Acute herpes zoster Continue IV Acyclovir for now until encephalitis is ruled out. If HSV PCR negative, we could consider switching to PO Valacyclovir. Acetaminophen 500 mg every 6 hours as needed, morphine 2 mg every 4 hours as needed. urinary tract infection -Culture today shows Pseudomonas. d/c ceftriaxone and start Ciprofloxacin 500mg PO BID. Atrial fibrillation Hypertension Currently normotensive. Continue carvedilol 3.125 mg p.o. daily, apixaban 2.5 mg p.o. twice daily. No indication to continue aspirin. Aspirin discontinued. Placement: Will refer to [facility]. Full code. Will start Apixaban 2.5mg BID today 11/19/2018. Progress Note: Quality VTE Deep Vein Thrombosis/Pulmonary Embolism Present on Admission: No
[2018-11-19] MEDS: levETIRAcetam 500 MG Tablet PO SCH ×2 (09:43→21:29)
[2018-11-19] MEDS: Morphine Inj 4 MG/ML Vial IV.PUSH PRN ×2 (13:50→17:59)
[2018-11-19 14:52] LABS: EBV DNA PCR CSF Source CSF; Epstein-Barr Virus DNA PCR CSF Negative (Negative)
[2018-11-20] MEDS: Morphine Inj 4 MG/ML Vial IV.PUSH PRN ×3 (01:27→20:18)
[2018-11-20] MEDS: SODIUM CHLOR 0.9% IV.SIG SCH ×3 (04:35→20:02)
[2018-11-20] MEDS: ACYCLOVIR IV.SIG SCH ×3 (04:35→20:02)
[2018-11-20] MEDS ORDERED: Ciprofloxacin 500 MG Tablet PO ONE (09:00)
[2018-11-20] MEDS: Ciprofloxacin 500 MG Tablet PO SCH ×2 (09:43→20:04)
[2018-11-20] MEDS: levETIRAcetam 500 MG Tablet PO SCH ×2 (09:43→20:04)
--- NOTE | 2018-11-20 10:29 | P.PNIM ---
Subjective Interval history: Is in bed appears in not acute distress. Patient was more awake and alert, knows her name date of and location. Able to eat with help. No fever or chills. No cough. No urinary complaints. Rash improving. Follows commands. Physical Exam Vital signs: Vital Signs 11/19/18 09:29 11/19/18 12:00 11/19/18 16:00 Temperature 98.8 F 98.4 F Pulse Rate 98 H 100 H 100 H Respiratory Rate 21 20 Blood Pressure 136/62 145/81 H Pulse Oximetry 95 11/19/18 20:00 11/20/18 00:00 11/20/18 00:15 Temperature 99.2 F 100.2 F H Pulse Rate 89 99 H 94 H Respiratory Rate 18 18 Blood Pressure 94/60 L 107/78 Pulse Oximetry 94 L 93 L 11/20/18 04:00 Temperature 98.8 F Pulse Rate 74 Respiratory Rate 18 Blood Pressure Pulse Oximetry 95 Intake & Output 11/19/18 11/20/18 11/20/18 18:59 06:59 18:59 Intake Total 1191 / 1191 322 / 322 120 / 120 Output Total 420 / 420 50 / 50 Balance 771 / 771 322 / 322 70 / 70 Weight 58.2 kg Intake: IV 261 / 261 322 / 322 Zovirax Inj 550 MG In NS Inj 161 / 161 322 / 322 150 ML @ 161 mls/hr IV.SIG Q8H [facility] Rx#:[id number] Rocephin Inj 1,000 MG In NS Inj 100 / 100 100 ML @ 200 mls/hr IV.SIG Q24H [facility] Rx#:[id number] Oral 930 / 930 120 / 120 Output: Urine 420 / 420 50 / 50 Other: Date of Last Bowel Movement 11/17/18 11/17/18 Narrative: GENERAL: 83 yo F, well nourished well developed, appears in nad. More awake and oriented back to her baseline. CARDIOVASCULAR: Irreg Irreg without murmurs, gallops, or rubs. RESPIRATORY: Breath sounds equal bilaterally. No accessory muscle use. GASTROINTESTINAL: Abdomen soft, non-tender, nondistended. MUSCULOSKELETAL: No cyanosis, or edema. BACK: Nontender without obvious deformity. No CVA tenderness. Results Labs CBC & Chem 7: 11/17/18 05:00 11/17/18 05:00 Labs: Microbiology 11/18/18 08:52 Lumbar Puncture Gram Stain - Final 11/18/18 08:52 Lumbar Puncture CSF Culture - Preliminary No growth in 48 hours 11/16/18 17:35 Catheterized Urine Urine Culture - Final Pseudomonas aeruginosa Assessment and Plan Plan Ms. Montanez is an 83-year-old female with a history of atrial fibrillation, previous CVA, hypertension who presents to the emergency department on the advice of her primary care physician due to increased amount of lethargy as well as altered mental status. Patient was recently evaluated in the emergency department and was diagnosed with right flank area shingles. She has been on acyclovir p.o. Probable viral encephalitis ? History of left-sided CVA History of seizure around the time of stroke Possibly due to acute herpes zoster CT scan did not show any acute findings. MRI unremarkable for any acute findings. Continue Keppra 500 mg p.o. twice daily. -Currently on regular soft diet. PT, OT, speech therapy following -Neurology evaluation appreciated. Acute herpes zoster Continue IV Acyclovir for now until encephalitis is ruled out. Seen by neurology Dr. Kulkarni. CSF analysis reviewed. Per neurology recommendation can switch to by mouth acyclovir and can be discharged. Acetaminophen 500 mg every 6 hours as needed, morphine 2 mg every 4 hours as needed. urinary tract infection -Culture today shows Pseudomonas. d/c ceftriaxone and start Ciprofloxacin 500mg PO BID. continue discharge Atrial fibrillation, rate controlled Hypertension Currently normotensive. Continue carvedilol 3.125 mg p.o. daily, apixaban 2.5 mg p.o. twice daily. No indication to continue aspirin. Aspirin discontinued. Placement: Will refer to [facility]. Full code. Apixaban 2.5mg BID today 11/19/2018. Patient improved, cleared by neurology for discharge. Discharged to inpatient rehab to follow-up with PCP and consultants as outpatient. Progress Note: Quality VTE Deep Vein Thrombosis/Pulmonary Embolism Present on Admission: No
--- NOTE | 2018-11-20 11:07 | P.PNNEU ---
Subjective Subjective Comments: has been more alert. Denies headache or photophobia Active Medications: Active Medications Acetaminophen (Tylenol) 500 mg PO Q4H PRN PRN Reason: Fever, headache, pain 1-4 Last Admin: 11/18/18 11:49 Dose: 500 mg Al Hydroxide/Mg Hydroxide (Milk Of Magnesia Liq) 30 ml PO Q12H PRN PRN Reason: Mild Constipation Apixaban (Eliquis) 2.5 mg PO BID [facility] Last Admin: 11/20/18 09:42 Dose: 2.5 mg Bisacodyl (Dulcolax Supp) 10 mg RECTAL DAILY PRN PRN Reason: SEVERE CONSITIPATION Carvedilol (Coreg) 3.125 mg PO DAILY [facility] Last Admin: 11/20/18 09:42 Dose: 3.125 mg Ciprofloxacin HCl (Cipro) 500 mg PO Q12HR [facility] Last Admin: 11/20/18 09:43 Dose: 500 mg Acyclovir Sodium 550 mg/ (Sodium Chloride) 161 mls @ 161 mls/hr IV.SIG Q8H [facility] Last Infusion: 11/20/18 05:45 Dose: Infused Lactulose (Lactulose Liq) 30 ml PO DAILY PRN PRN Reason: SEVERE CONSITIPATION Levetiracetam (Keppra) 500 mg PO BID [facility] Last Admin: 11/20/18 09:43 Dose: 500 mg Morphine Sulfate (Morphine Inj) 2 mg IV.PUSH Q4H PRN PRN Reason: Pain 5-10 Last Admin: 11/20/18 01:27 Dose: 2 mg Ondansetron HCl (Zofran Inj) 4 mg IV.PUSH Q6H PRN PRN Reason: NAUSEA OR VOMITING Sennosides (Senokot) 17.2 mg PO Q12H PRN PRN Reason: Moderate Constipation Sodium Chloride (Ns Flush) 2 ml IV.FLUSH BID [facility] Last Admin: 11/20/18 09:43 Dose: 2 ml Sodium Chloride (Ns Flush) 2 ml IV.FLUSH PRN PRN PRN Reason: FLUSH AFTER USING IV ACCESS Allergies/Adverse Reactions: Allergies Allergy/AdvReac Type Severity Reaction Status Date / Time Sulfa (Sulfonamide Allergy Mild Hives Verified 11/07/18 11:22 Antibiotics) Physical Exam Vital signs: Vital Signs 11/19/18 12:00 11/19/18 16:00 11/19/18 20:00 Temperature 98.4 F 99.2 F Pulse Rate 100 H 100 H 89 Respiratory Rate 20 18 Blood Pressure 145/81 H 94/60 L Pulse Oximetry 95 94 L 11/20/18 00:00 11/20/18 00:15 11/20/18 04:00 Temperature 100.2 F H 98.8 F Pulse Rate 99 H 94 H 74 Respiratory Rate 18 18 Blood Pressure 107/78 Pulse Oximetry 93 L 95 11/20/18 08:00 Temperature Pulse Rate 100 H Respiratory Rate Blood Pressure Pulse Oximetry Intake & Output 11/19/18 11/20/18 11/20/18 18:59 06:59 18:59 Intake Total 1191 / 1191 322 / 322 120 / 120 Output Total 420 / 420 50 / 50 Balance 771 / 771 322 / 322 70 / 70 Weight 58.2 kg Intake: IV 261 / 261 322 / 322 Zovirax Inj 550 MG In NS Inj 161 / 161 322 / 322 150 ML @ 161 mls/hr IV.SIG Q8H [facility] Rx#:[id number] Rocephin Inj 1,000 MG In NS Inj 100 / 100 100 ML @ 200 mls/hr IV.SIG Q24H [facility] Rx#:[id number] Oral 930 / 930 120 / 120 Output: Urine 420 / 420 50 / 50 Other: Date of Last Bowel Movement 11/17/18 11/17/18 - Routine Neurological Exam alert, disoriented to date and place. poor recall CN intact Neck supple with no meningismus Objective Laboratory Results - last 24 hr 11/18/18 08:52 CSF EBV DNA (PCR) Negative CSF Herpes I DNA (PCR) Negative CSF Herpes II DNA (PCR) Negative EBV Source Csf Microbiology 11/18/18 08:52 Gram Stain - Final Lumbar Puncture CSF Culture - Preliminary No growth in 48 hours 11/16/18 17:35 Urine Culture - Final Catheterized Urine Pseudomonas aeruginosa Review/Management - Review/Management Plan: csf shows mild pleocytosis. CSF culture negative and CSF HSV PCR negative. No sign of HSV encephalitis. Ok from neuro perspective to change acyclovir from iv to po
--- NOTE | 2018-11-20 12:45 | P.DS ---
DS: Providers Date of admission: 11/19/18 09:08 Primary care physician: Glenn Marie DO Consults: 11/17/18 09:59 Consult to Neurology Routine Consulting Provider: Colt Kulkarni Reason for Consultation: Large Herpes Zoster on right flank area, started 7 days ago. Now with significant encephalitis. MRI ordered. Will order LP. Notified:: Office Spoke with:: michele Date Notified:: 11/17/18 Time Notified:: 10:07 Ordering Provider: WILMAN Donaldson History from admission: Ms. Montanez is an 83-year-old female with a history of atrial fibrillation, hypertension, previous stroke who presented to the emergency department on 11/16/2018 due to worsening lethargy, altered mental status. At her baseline, patient is able to walk around but cannot verbalize. She comprehends very well. At the time of this interview, patient is not able to participate in any meaningful way. Patient's is at bedside. About a week ago, his skin lesion on the right flank area was noted. She was subsequently evaluated in the emergency department and was given desciclovir. She went to her primary care physician's office where she was found to have an lethargy. Primary care physician called ambulance and subsequently patient was brought to the hospital. ED workup indicates possible UTI. CT head showed old stroke but no acute findings. Patient was given 1 dose of ceftriaxone in the emergency department. 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 Family history: No family history of Alzheimer's or Parkinson's. DS: Summary ell as altered mental status. Patient was recently evaluated in the emergency department and was diagnosed with right flank area shingles. She has been on acyclovir p.o. Probable viral encephalitis ? History of left-sided CVA History of seizure around the time of stroke Possibly due to acute herpes zoster CT scan did not show any acute findings. MRI unremarkable for any acute findings. Continue Keppra 500 mg p.o. twice daily. -Currently on regular soft diet. PT, OT, speech therapy following -Neurology evaluation appreciated. Acute herpes zoster Continue IV Acyclovir for now until encephalitis is ruled out. Seen by neurology Dr. Kulkarni. CSF analysis reviewed. Per neurology recommendation can switch to by mouth acyclovir and can be discharged. Acetaminophen 500 mg every 6 hours as needed, morphine 2 mg every 4 hours as needed. urinary tract infection -Culture today shows Pseudomonas. d/c ceftriaxone and start Ciprofloxacin 500mg PO BID. continue discharge Atrial fibrillation, rate controlled Hypertension Currently normotensive. Continue carvedilol 3.125 mg p.o. daily, apixaban 2.5 mg p.o. twice daily. No indication to continue aspirin. Aspirin discontinued. Placement: Will refer to [facility]. Full code. Apixaban 2.5mg BID today 11/19/2018. Patient improved, cleared by neurology for discharge. Discharged to inpatient rehab to follow-up with PCP and consultants as outpatient. Time Spent with Patient Total time spent providing and/or coordinating discharge services: > 30 min Quality: VTE Deep Vein Thrombosis/Pulmonary Embolism Present on Admission: No Exam Narrative Exam Narrative: GENERAL: 83 yo F, well nourished well developed, appears in nad. More awake and oriented back to her baseline. CARDIOVASCULAR: Irreg Irreg without murmurs, gallops, or rubs. RESPIRATORY: Breath sounds equal bilaterally. No accessory muscle use. GASTROINTESTINAL: Abdomen soft, non-tender, nondistended. MUSCULOSKELETAL: No cyanosis, or edema. BACK: Nontender without obvious deformity. No CVA tenderness. Results Labs on day of discharge: Labs from last 24 hours 11/18/18 08:52 CSF EBV DNA (PCR) Negative CSF Herpes I DNA (PCR) Negative CSF Herpes II DNA (PCR) Negative EBV Source Csf Preliminary micro results at discharge 11/18/18 08:52 CSF Culture - Preliminary Lumbar Puncture No growth in 48 hours Impressions ITS Impressions Head CT 11/16/18 00:00 CONCLUSION: 1. 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 Head MRI 11/17/18 00:00 CONCLUSION: 1. Old infarct left sylvian region, negative for acute process. Lumbar Puncture Fluoroscopy 11/18/18 00:00 CONCLUSION: Uncomplicated fluoroscopically guided lumbar puncture. Discharge Plan Discharge Disposition Patient Disposition: [facility] Rehab Inpatient Discharge Condition Condition: Stable Discharge Order Discharge Orders: Discharge Order (Routine); Ordered 11/20/18 Ordered By: Pilar Rae Discharge Details Anticipated Discharge Date: 11/20/18 Discharge Comment: DC when arrangements are done Physicians Team Primary Care Provider: Glenn Marie Attending Provider: Pilar Rae Other Providers: Colt Kulkarni Rxs /Orders / Referrals /Forms Prescriptions: New ciprofloxacin HCl 500 mg Tablet 500 mg PO Q12HR Qty: 6 RF: 0 Continue lorazepam 0.5 mg Tablet 0.5 mg PO HS RF: 0 acyclovir 800 mg tablet 800 mg PO 5 TIMES A DAY RF: 0 losartan 50 mg Tablet 50 mg PO DAILY RF: 0 nitroglycerin 0.1 mg/hr Patch 24 Hour 1 patch TRANSDERMAL DAILY RF: 0 pravastatin 40 mg Tablet 40 mg PO HS RF: 0 levetiracetam 500 mg Tablet 500 mg PO BID RF: 0 sertraline 100 mg Tablet 1.5 tab PO DAILY RF: 0 risperidone 0.25 mg Tablet 1 - 2 tab PO DAILY RF: 0 carvedilol 3.125 mg Tablet 3.125 mg PO DAILY RF: 0 lorazepam 0.5 mg Tablet 0.5 tab PO BID RF: 0 pantoprazole 40 mg Tablet,Delayed Release (Dr/Ec) 1 tab PO PRN RF: 0 aspirin 81 mg Tablet,Chewable 81 mg PO DAILY RF: 0 polyethylene glycol 3350 [Miralax] 17 gram/dose Powder 1 scoop PO DAILY RF: 0 melatonin 1 mg Tablet 1 mg PO HS PRN (Reason: Sleep) RF: 0 loratadine 10 mg Capsule 10 mg PO DAILY RF: 0 apixaban [Eliquis] 2.5 mg Tablet 2.5 mg PO BID RF: 0 gabapentin 100 mg capsule 100 mg PO BID Qty: 10 RF: 0 Referrals: Glenn Marie DO [Primary Care Provider] - See Instructions ( Please call the physician's office to book the appointment to be seen within [2-3 days] .) Status ED Status: Left Department
[2018-11-21] MEDS: ACYCLOVIR IV.SIG SCH ×3 (03:48→19:39)
[2018-11-21] MEDS: SODIUM CHLOR 0.9% IV.SIG SCH ×3 (03:48→19:39)
[2018-11-21] MEDS: Ciprofloxacin 500 MG Tablet PO SCH ×2 (09:50→20:07)
[2018-11-21] MEDS: levETIRAcetam 500 MG Tablet PO SCH ×2 (09:51→20:07)
--- NOTE | 2018-11-21 14:05 | P.PNIM ---
Subjective Interval history: In bed the patient is in bed more awake and alert. No acute events overnight. No motor deficit. Physical Exam Vital signs: Vital Signs 11/20/18 16:00 11/20/18 20:00 11/21/18 00:00 Temperature 97.8 F 98.0 F 98.3 F Pulse Rate 77 70 65 Respiratory Rate 21 16 16 Blood Pressure 178/80 H 140/74 136/62 Pulse Oximetry 95 96 96 11/21/18 08:00 11/21/18 12:00 Temperature 99.6 F 100 F H Pulse Rate 86 87 Respiratory Rate 20 20 Blood Pressure 109/81 107/74 Pulse Oximetry 95 96 Intake & Output 11/20/18 11/21/18 11/21/18 18:59 06:59 18:59 Intake Total 1021 / 1021 322 / 322 161 / 161 Output Total 100 / 100 400 / 400 300 / 300 Balance 921 / 921 -78 / -78 -139 / -139 Weight 58.4 kg Intake: IV 161 / 161 322 / 322 161 / 161 Zovirax Inj 550 MG In NS Inj 161 / 161 322 / 322 161 / 161 150 ML @ 161 mls/hr IV.SIG Q8H [facility] Rx#:[id number] Oral 860 / 860 Output: Urine 100 / 100 400 / 400 300 / 300 Other: Date of Last Bowel Movement 11/17/18 Narrative: GENERAL: 83 yo F, well nourished well developed, appears in nad. More awake and oriented back to her baseline. CARDIOVASCULAR: Irreg Irreg without murmurs, gallops, or rubs. RESPIRATORY: Breath sounds equal bilaterally. No accessory muscle use. GASTROINTESTINAL: Abdomen soft, non-tender, nondistended. MUSCULOSKELETAL: No cyanosis, or edema. BACK: Nontender without obvious deformity. No CVA tenderness. Results Labs CBC & Chem 7: 11/17/18 05:00 11/17/18 05:00 Labs: Microbiology 11/18/18 08:52 Lumbar Puncture Gram Stain - Final 11/18/18 08:52 Lumbar Puncture CSF Culture - Final No growth in 72 hours Assessment and Plan Plan Ms. Montanez is an 83-year-old female with a history of atrial fibrillation, previous CVA, hypertension who presents to the emergency department on the advice of her primary care physician due to increased amount of lethargy as well as altered mental status. Patient was recently evaluated in the emergency department and was diagnosed with right flank area shingles. She has been on acyclovir p.o. Probable viral encephalitis ? History of left-sided CVA History of seizure around the time of stroke Possibly due to acute herpes zoster CT scan did not show any acute findings. MRI unremarkable for any acute findings. Continue Keppra 500 mg p.o. twice daily. -Currently on regular soft diet. PT, OT, speech therapy following -Neurology evaluation appreciated. Acute herpes zoster Continue IV Acyclovir for now until encephalitis is ruled out. Seen by neurology Dr. Kulkarni. CSF analysis reviewed. Per neurology recommendation can switch to by mouth acyclovir and can be discharged. Acetaminophen 500 mg every 6 hours as needed, morphine 2 mg every 4 hours as needed. urinary tract infection -Culture today shows Pseudomonas. d/c ceftriaxone and start Ciprofloxacin 500mg PO BID. continue discharge Atrial fibrillation, rate controlled Hypertension Currently normotensive. Continue carvedilol 3.125 mg p.o. daily, apixaban 2.5 mg p.o. twice daily. No indication to continue aspirin. Aspirin discontinued. Placement: Will refer to [facility]. Full code. Apixaban 2.5mg BID today 11/19/2018. Patient improved, cleared by neurology for discharge. Discharged to inpatient rehab when bed available. To follow-up with PCP and consultants as outpatient. Progress Note: Quality VTE Deep Vein Thrombosis/Pulmonary Embolism Present on Admission: No
[2018-11-21] MEDS: Morphine Inj 4 MG/ML Vial IV.PUSH PRN ×2 (14:35→19:34)
[2018-11-21] MEDS: Acetaminophen 500 MG Tablet PO PRN (17:00)
[2018-11-22] MEDS: ACYCLOVIR IV.SIG SCH ×2 (04:54→12:21)
[2018-11-22] MEDS: SODIUM CHLOR 0.9% IV.SIG SCH ×2 (04:54→12:21)
[2018-11-22] MEDS: Ciprofloxacin 500 MG Tablet PO SCH (09:13)
[2018-11-22] MEDS: levETIRAcetam 500 MG Tablet PO SCH (09:13)
--- NOTE | 2018-11-22 10:33 | P.PNIM ---
Subjective Interval history: Is more awake and alert today. She is back at baseline. is looking for rehab places. Possible discharge to the [place] rehab today. Patient is eating fairly well. No pain. Rash is improving. Physical Exam Vital signs: Vital Signs 11/21/18 12:00 11/21/18 16:00 11/21/18 20:00 Temperature 100 F H 100.3 F H 97.1 F L Pulse Rate 87 84 109 H Respiratory Rate 20 20 18 Blood Pressure 107/74 118/62 89/68 L Pulse Oximetry 96 98 96 11/22/18 00:00 11/22/18 08:00 Temperature 97.4 F L 99.4 F Pulse Rate 93 H 83 Respiratory Rate 18 20 Blood Pressure 140/95 H 143/71 H Pulse Oximetry 96 95 Intake & Output 11/21/18 11/22/18 11/22/18 18:59 06:59 18:59 Intake Total 401 / 401 322 / 322 0 / 0 Output Total 825 / 825 1000 / 1000 0 / 0 Balance -424 / -424 -678 / -678 0 / 0 Weight 60.9 kg Intake: IV 161 / 161 322 / 322 Zovirax Inj 550 MG In NS Inj 161 / 161 322 / 322 150 ML @ 161 mls/hr IV.SIG Q8H [facility] Rx#:[id number] Oral 240 / 240 0 / 0 Output: Urine 825 / 825 1000 / 1000 0 / 0 Other: Date of Last Bowel Movement 11/21/18 Narrative: GENERAL: 83 yo F, well nourished well developed, appears in nad. More awake and oriented back to her baseline. CARDIOVASCULAR: Irreg Irreg without murmurs, gallops, or rubs. RESPIRATORY: Breath sounds equal bilaterally. No accessory muscle use. GASTROINTESTINAL: Abdomen soft, non-tender, nondistended. MUSCULOSKELETAL: No cyanosis, or edema. SKIN: Rash right lateral side imprpving. BACK: Nontender without obvious deformity. No CVA tenderness. Results Labs CBC & Chem 7: 11/17/18 05:00 11/17/18 05:00 Labs: Microbiology 11/18/18 08:52 Lumbar Puncture Gram Stain - Final 11/18/18 08:52 Lumbar Puncture CSF Culture - Final No growth in 72 hours Assessment and Plan Plan Ms. Montanez is an 83-year-old female with a history of atrial fibrillation, previous CVA, hypertension who presents to the emergency department on the advice of her primary care physician due to increased amount of lethargy as well as altered mental status. Patient was recently evaluated in the emergency department and was diagnosed with right flank area shingles. She has been on acyclovir p.o. Probable viral encephalitis ? History of left-sided CVA History of seizure around the time of stroke Possibly due to acute herpes zoster CT scan did not show any acute findings. MRI unremarkable for any acute findings. Continue Keppra 500 mg p.o. twice daily. -Currently on regular soft diet. PT, OT, speech therapy following -Neurology evaluation appreciated. Acute herpes zoster Continue IV Acyclovir for now until encephalitis is ruled out. Seen by neurology Dr. Kulkarni. CSF analysis reviewed. Per neurology recommendation can switch to by mouth acyclovir and can be discharged. Acetaminophen 500 mg every 6 hours as needed, morphine 2 mg every 4 hours as needed. urinary tract infection -Culture today shows Pseudomonas. d/c ceftriaxone and start Ciprofloxacin 500mg PO BID. continue discharge Atrial fibrillation, rate controlled Hypertension Currently normotensive. Continue carvedilol 3.125 mg p.o. daily, apixaban 2.5 mg p.o. twice daily. No indication to continue aspirin. Aspirin discontinued. Placement: Will refer to [facility]. Full code. Apixaban 2.5mg BID today 11/19/2018. Patient improved, cleared by neurology for discharge. Discharged to inpatient rehab when bed available. To follow-up with PCP and consultants as outpatient. POss DC today , CM is working for DC plan Progress Note: Quality VTE Deep Vein Thrombosis/Pulmonary Embolism Present on Admission: No
== END 2018-11-22 13:12 | DRG 596 ==
LOC: PHEDA 14:24 → PHED 14:24 → PH3 20:50
PROVIDERS: ADMIT Hospitalist; ATTEND Hospitalist
CPT/HCPCS: 62270; 70450; 70553; 76937; 77003; 80048; 80053; 80061; 80177; 80299; 81001; 82140; 82491; 82945; 84155; 84157; 84439; 84443; 84484; 85025; 85610; 85730; 87070; 87077; 87086; 87186; 87205; 87529; 87799; 89051; 92526; 92610; 93005; 97110; 97116; 97162; 97167; A9585; C9238; G0195; G8987; G8988; G8996; G8997; J0133; J0696; J1953; J2270; J3480; J7030